=== PATIENT | male | born 1980 | race Hispanic/Latino ===

== ENCOUNTER 2016-08-10 23:08 | Emergency (ER) | payer OTHER ==
[~2016-08-10] VITALS: Ht 170.2 cm; Wt 72.6 kg
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
[2016-08-11] MEDS ORDERED: AUGMENTIN 875-1 EACH PO (00:33)
[2016-08-11 01:02] VITALS: BP 125/77
== END 2016-08-11 01:03 ==
LOC: ERH 23:08
DX: S01.419A Laceration without foreign body of unspecified cheek and temporomandibular area, initial encounter (principal); S01.512A Laceration without foreign body of oral cavity, initial encounter; Y04.0XXA Assault by unarmed brawl or fight, initial encounter; Y93.89 Activity, other specified; Y92.9 Unspecified place or not applicable